=== PATIENT | female | born 1970 | race Caucasian/White ===

== ENCOUNTER 2018-01-16 20:26 | Observation (INO) | payer OTHER, BC ==
[2018-01-16] MEDS: SOD CHLORIDE 0.9% 1,000 ML IV (20:55)
[2018-01-16] MEDS: ONDANSETRON 4 MG INJ IV (20:55)
[2018-01-16] MEDS: morphine 4 MG/ML VIAL IV ×2 (20:56→22:30)
[2018-01-16 21:15] LABS: ADD MAN DIFF? NO
[2018-01-16 21:17] LABS: BASOPHIL # 0.1 10^3/ul (0.0-0.1); BASOPHILS % 0.9 % (0.0-2.0); EOSINOPHILS # 0.5 10^3/ul (0.0-0.5); HEMOGLOBIN 12.6 g/dl (12.0-16.0); LYMPHOCYTES % 41.8 % (15.0-51.0); MEAN CORPUSCULAR HEMOGLOBIN 29.2 pg (29.0-33.0); MEAN CORPUSCULAR HGB CONC 34.1 g/dl (32.0-37.0); MEAN CORPUSCULAR VOLUME 85.8 fl (82.0-101.0); MONOCYTE # 0.7 10^3/ul (0.3-0.9); MONOCYTES % 7.6 % (0.0-11.0); NEUTROPHIL # 4.3 10^3/ul (1.6-7.5); NEUTROPHILS % 44.4 % (39.0-77.0); PLATELET COUNT 207 10^3/UL (140-415); RED BLOOD COUNT 4.31 10^6/ul (4.20-5.40)
[2018-01-16 21:17] LABS: WHITE BLOOD COUNT 9.6 10^3/ul (4.8-10.8)
[2018-01-16 21:26] LABS: ADD UMIC YES; UR ASCORBIC ACID NEGATIVE (NEGATIVE); UR BACTERIA MODERATE /HPF (NONE SEEN); UR BILIRUBIN (Dip) NEGATIVE (NEGATIVE); UR BLOOD (Dip) 3+ mg/dL (NEGATIVE); UR CLARITY CLOUDY (CLEAR); UR COLOR YELLOW (YELLOW); UR GLUCOSE (Dip) NEGATIVE (NEGATIVE); UR KETONES (Dip) NEGATIVE (NEGATIVE); UR LEUKOCYTE ESTERASE (Dip) 3+ Leu/ul (NEGATIVE); UR NITRITE (Dip) NEGATIVE (NEGATIVE); UR RBC > 182 /HPF (0-5); UR SPECIFIC GRAVITY (Dip) 1.018 (1.003-1.030); UR TOTAL PROTEIN (Dip) 3+ mg/dl (NEGATIVE); UR UROBILINOGEN (Dip) NEGATIVE (NEGATIVE); UR WBC > 182 /HPF (0-5)
[2018-01-16 21:44] LABS: ALANINE AMINOTRANSFERASE 58 IU/L (13-69); ALBUMIN/GLOBULIN RATIO 1.37; ALKALINE PHOSPHATASE 144 IU/L (42-121); ANION GAP 14 (8-16); ASPARTATE AMINO TRANSFERASE 40 IU/L (15-46); BILIRUBIN,INDIRECT 0.4 mg/dl (0-1.1); BILIRUBIN,TOTAL 0.4 mg/dl (0.2-1.3); BLOOD UREA NITROGEN 20 mg/dl (7-20); CALCIUM 9.4 mg/dl (8.4-10.2); CARBON DIOXIDE 21 mmol/L (21-31); CHLORIDE 110 mmol/L (97-110); CREATININE 0.92 mg/dl (0.44-1.00); GLUCOSE 111 mg/dl (70-220); LIPASE 237 U/L (23-300); SODIUM 141 mmol/L (135-144); TOTAL PROTEIN 6.9 g/dl (6.1-8.1)
[2018-01-16] MEDS: CEFTRIAXONE 1 GM/50 ML (PMX) 50 ML IVPB (22:29)
[2018-01-16] MEDS: KETOROLAC 30 MG INJ IV (22:30)
[2018-01-17] MEDS: HYDROmorphONE 2 MG/ML SYG IV (00:11)
[2018-01-17] MEDS ORDERED: ONDANSETRON 4 MG INJ IV (02:30)
[2018-01-17] MEDS ORDERED: ACETAMINOPHEN 325 MG TAB PO (02:30)
[2018-01-17] MEDS: morphine 2 MG INJ IV ×3 (02:58→10:41)
[2018-01-17] MEDS: traZODone 100 MG TAB PO ×2 (02:59→20:37)
[2018-01-17] MEDS: ATORVASTATIN 20 MG TAB PO ×2 (02:59→20:37)
[2018-01-17] MEDS: SOD CHLORIDE 0.9% 1,000 ML IV ×3 (02:59→22:38)
[2018-01-17 04:30] LABS: ADD MAN DIFF? NO
[2018-01-17 04:32] LABS: BASOPHIL # 0.1 10^3/ul (0.0-0.1); EOSINOPHILS # 0.6 10^3/ul (0.0-0.5); HEMATOCRIT 34.9 % (37.0-47.0); HEMOGLOBIN 11.6 g/dl (12.0-16.0); LYMPHOCYTES # 3.7 10^3/ul (0.8-2.9); LYMPHOCYTES % 45.8 % (15.0-51.0); MEAN CORPUSCULAR HEMOGLOBIN 29.2 pg (29.0-33.0); MEAN CORPUSCULAR HGB CONC 33.2 g/dl (32.0-37.0); MEAN CORPUSCULAR VOLUME 87.9 fl (82.0-101.0); MEAN PLATELET VOLUME 10.2 fl (7.4-10.4); MONOCYTE # 0.6 10^3/ul (0.3-0.9); MONOCYTES % 7.1 % (0.0-11.0); NEUTROPHIL # 3.1 10^3/ul (1.6-7.5); NEUTROPHILS % 38.6 % (39.0-77.0); PLATELET COUNT 179 10^3/UL (140-415); RED BLOOD COUNT 3.97 10^6/ul (4.20-5.40); RED CELL DISTRIBUTION WIDTH 11.9 % (11.5-14.5)
[2018-01-17 04:51] LABS: ALANINE AMINOTRANSFERASE 54 IU/L (13-69); ALBUMIN 3.3 g/dl (3.3-4.9); ALBUMIN/GLOBULIN RATIO 1.32; ALKALINE PHOSPHATASE 88 IU/L (42-121); ANION GAP 9 (8-16); ASPARTATE AMINO TRANSFERASE 32 IU/L (15-46); BILIRUBIN,INDIRECT 0.3 mg/dl (0-1.1); BILIRUBIN,TOTAL 0.3 mg/dl (0.2-1.3); BLOOD UREA NITROGEN 17 mg/dl (7-20); CALCIUM 8.4 mg/dl (8.4-10.2); CARBON DIOXIDE 22 mmol/L (21-31); CHLORIDE 114 mmol/L (97-110); CREATININE 0.89 mg/dl (0.44-1.00); GLUCOSE 110 mg/dl (70-220); POTASSIUM 3.7 mmol/L (3.5-5.1); SODIUM 141 mmol/L (135-144); TOTAL PROTEIN 5.8 g/dl (6.1-8.1)
[2018-01-17] MEDS: CITALOPRAM 20 MG TAB PO (08:42)
[2018-01-17] MEDS: NICOTINE (21 MG/24 HR) PATCH TRANSDERM (13:57)
[2018-01-17] MEDS: morphine LIQ (10 MG/5 ML) CUP PO ×2 (13:58→18:24)
[2018-01-17] MEDS: HYDROmorphONE 1 MG/ML SYG IV (22:38)
[2018-01-17] MEDS: CEFTRIAXONE 1 GM/50 ML (PMX) 50 ML IVPB (22:38)
[2018-01-18] MEDS: HYDROmorphONE 1 MG/ML SYG IV ×5 (04:21→21:12)
[2018-01-18] MEDS: PANTOPRAZOLE 40 MG INJ IV (05:32)
[2018-01-18 06:09] LABS: ADD MAN DIFF? NO
[2018-01-18 06:21] LABS: BASOPHIL # 0.1 10^3/ul (0.0-0.1); BASOPHILS % 1.2 % (0.0-2.0); EOSINOPHILS # 0.6 10^3/ul (0.0-0.5); EOSINOPHILS % 8.6 % (0.0-7.0); HEMATOCRIT 37.3 % (37.0-47.0); HEMOGLOBIN 12.4 g/dl (12.0-16.0); LYMPHOCYTES # 2.5 10^3/ul (0.8-2.9); MEAN CORPUSCULAR HEMOGLOBIN 29.1 pg (29.0-33.0); MEAN CORPUSCULAR HGB CONC 33.2 g/dl (32.0-37.0); MEAN CORPUSCULAR VOLUME 87.6 fl (82.0-101.0); MEAN PLATELET VOLUME 10.3 fl (7.4-10.4); MONOCYTE # 0.5 10^3/ul (0.3-0.9); NEUTROPHILS % 44.9 % (39.0-77.0); PLATELET COUNT 186 10^3/UL (140-415); RED BLOOD COUNT 4.26 10^6/ul (4.20-5.40); RED CELL DISTRIBUTION WIDTH 11.9 % (11.5-14.5)
[2018-01-18 06:21] LABS: WHITE BLOOD COUNT 6.8 10^3/ul (4.8-10.8)
[2018-01-18 07:13] LABS: ANION GAP 9 (8-16); BLOOD UREA NITROGEN 11 mg/dl (7-20); CARBON DIOXIDE 27 mmol/L (21-31); CHLORIDE 109 mmol/L (97-110); CREATININE 0.86 mg/dl (0.44-1.00); GLUCOSE 96 mg/dl (70-220); POTASSIUM 3.6 mmol/L (3.5-5.1); SODIUM 141 mmol/L (135-144)
[2018-01-18 08:01] LABS: HEMOGLOBIN A1C 5.8 % (0-5.9)
[2018-01-18] MEDS: CITALOPRAM 20 MG TAB PO (09:11)
[2018-01-18] MEDS: NICOTINE (21 MG/24 HR) PATCH TRANSDERM (09:11)
[2018-01-18] MEDS: ERTAPENEM SODIUM 1 GM in SOD CHLORIDE 0.9% 100 ML IVPB (11:52)
[2018-01-18] MEDS: SOD CHLORIDE 0.9% 1,000 ML IV ×2 (14:29→20:47)
[2018-01-18] MEDS: traZODone 100 MG TAB PO (20:21)
[2018-01-18] MEDS: ATORVASTATIN 20 MG TAB PO (20:21)
[2018-01-19] MEDS: HYDROmorphONE 1 MG/ML SYG IV ×3 (01:35→10:08)
[2018-01-19] MEDS: SOD CHLORIDE 0.9% 1,000 ML IV (04:11)
[2018-01-19] MEDS: PANTOPRAZOLE 40 MG INJ IV (05:50)
[2018-01-19] MEDS: CITALOPRAM 20 MG TAB PO (08:26)
[2018-01-19] MEDS: NICOTINE (21 MG/24 HR) PATCH TRANSDERM (08:30)
[2018-01-19] MEDS: DIPHENHYDRAMINE 25 MG CAP PO (08:34)
[2018-01-19] MEDS: ERTAPENEM SODIUM 1 GM in SOD CHLORIDE 0.9% 100 ML IVPB (09:30)
== END 2018-01-19 12:20 | disposition home or self-care (01) ==
LOC: E/R 20:26 → MS2 01-17 00:44
DX: N13.2 Hydronephrosis with renal and ureteral calculous obstruction (principal); N39.0 Urinary tract infection, site not specified; B96.20 Unspecified Escherichia coli [E. coli] as the cause of diseases classified elsewhere; E78.00 Pure hypercholesterolemia, unspecified; Z93.6 Other artificial openings of urinary tract status; F17.200 Nicotine dependence, unspecified, uncomplicated; E78.5 Hyperlipidemia, unspecified; F32.9 Major depressive disorder, single episode, unspecified; G89.4 Chronic pain syndrome; E66.3 Overweight; Z68.32 Body mass index [BMI] 32.0-32.9, adult
CPT/HCPCS: 36415; 74176; 76775; 80048; 80053; 81001; 81025; 83036; 83690; 85025; 87086; 96361; 96365; 96375; 96376; 99285-25